=== PATIENT | female | born 1975 | race Caucasian/White ===

== ENCOUNTER 2019-03-04 18:46 | Emergency (ER) | payer BC ==
[~2019-03-04] VITALS: Ht 165.1 cm; Wt 93.0 kg
[2019-03-04 19:06] VITALS: BP 118/67
[2019-03-04] MEDS ORDERED: DIPHTH,PERTUSS(ACELL),TET TOX 0.5 ML DISP.SYRIN. VAX IM ONE (19:30)
[2019-03-04] MEDS ORDERED: MOXI400T PO (19:46)
--- NOTE | 2019-03-04 19:47 | PHYS DOC ---
Past History Past Medical History: Migraines Alcohol Use: None Drug Use: None Adult General Chief Complaint Chief Complaint: ANIMAL BITE HPI HPI 43-year-old female presents with single dog bite to the right lower leg. 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 A dog that she was managing slipped out of its collar and bit her on the leg. It was a single bite. The animal is known and is up-to-date on shots. The patient's tetanus is out of date. She does not have any other bites or injuries. Review of Systems Review of Systems Constitutional: Denies fever or chills [] Eyes: Denies change in visual acuity, redness, or eye pain [] HENT: Denies nasal congestion or sore throat [] Respiratory: Denies cough or shortness of breath [] Cardiovascular: No additional information not addressed in HPI [] GI: Denies abdominal pain, nausea, vomiting, bloody stools or diarrhea [] : Denies dysuria or hematuria [] Musculoskeletal: Denies back pain or joint pain [] Integument: Dog bite on the right lower leg[] Neurologic: Denies headache, focal weakness or sensory changes [] Endocrine: Denies polyuria or polydipsia [] All other systems were reviewed and found to be within normal limits, except as documented in this note. Current Medications Current Medications Current Medications Medications (Trade) Dose Ordered Sig/Stephanie Start Time Stop Time Status Last Admin Dose Admin Diphtheria/ Tetanus/Acell Pertussis (Boostrix) 0.5 ml ONCE ONCE 03/04/19 19:30 03/04/19 19:31 DC 03/04/19 19:31 0.5 ML Allergies Allergies Allergies Coded Allergies Type Severity Reaction Last Updated Verified Penicillins Allergy Severe Hives 03/04/19 Yes Cephalosporins Allergy Unknown 03/04/19 No Physical Exam Physical Exam Constitutional: Well developed, well nourished, no acute distress, non-toxic appearance. [] HENT: Normocephalic, atraumatic, bilateral external ears normal, oropharynx moist, no oral exudates, nose normal. [] Eyes: PERRLA, EOMI, conjunctiva normal, no discharge. [] Neck: Normal range of motion, no tenderness, supple, no stridor. [] Cardiovascular:Heart rate regular rhythm, no murmur [] Lungs & Thorax: Bilateral breath sounds clear to auscultation [] Abdomen: Bowel sounds normal, soft, no tenderness, no masses, no pulsatile masses. [] Skin: Mild swelling of the anterior right lower leg with a single dog bite.[] Back: No tenderness, no CVA tenderness. [] Extremities: No tenderness, no cyanosis, no clubbing, ROM intact, no edema. [] Neurologic: Alert and oriented X 3, normal motor function, normal sensory function, no focal deficits noted. [] Psychologic: Affect normal, judgement normal, mood normal. [] Current Patient Data Vital Signs Vital Signs Date Time Temp Pulse Resp B/P (MAP) Pulse Ox O2 Delivery O2 Flow Rate FiO2 03/04/19 19:06 98.2 72 16 98 Room Air EKG EKG [] Radiology/Procedures Radiology/Procedures [] Course & Med Decision Making Course & Med Decision Making Pertinent Labs and Imaging studies reviewed. (See chart for details) The patient's wound was thoroughly irrigated with saline. Since the patient status out-of-date we gave her a tetanus shot. I will place her on Augmentin for 7 days. The proper authorities were contacted and interviewed the patient. She is stable for discharge at this time. The patient is allergic to cephalosporins and penicillins. I will instead treat her with moxifloxacin 400 mg daily for 7 days. [] Dragon Disclaimer Dragon Disclaimer This electronic medical record was generated, in whole or in part, using a voice recognition dictation system. Departure Departure: Impression: Primary Impression: Dog bite of right lower leg Disposition: 01 HOME, SELF-CARE Condition: STABLE Referrals: LAUREN PALACIOS (PCP) Patient Instructions: Animal Bite, [id number] Scripts Moxifloxacin Hcl (AVELOX) 400 Mg Tablet 1 TAB PO DAILY for dog bite, #7 TAB Prov: CASSANDRA LUND DO 03/04/19 Problem Qualifiers Primary Impression: Dog bite of right lower leg Encounter type: initial encounter Qualified Codes: S81.851A - Open bite, right lower leg, initial encounter; W54.0XXA - Bitten by dog, initial encounter CASSANDRA LUND DO Mar 04, 2019 19:47
== END 2019-03-04 20:03 | disposition home or self-care (01) ==
LOC: ER 18:46
DX: S81.851A Open bite, right lower leg, initial encounter (principal); G43.909 Migraine, unspecified, not intractable, without status migrainosus; Z88.0 Allergy status to penicillin; Z88.1 Allergy status to other antibiotic agents; W54.0XXA Bitten by dog, initial encounter; Y93.89 Activity, other specified; Y92.89 Other specified places as the place of occurrence of the external cause; Y99.8 Other external cause status
CPT/HCPCS: 90471; 90715; 99283

== ENCOUNTER → 2022-01-25 | Outpatient (CLI) | payer BC ==
[~2022-01-25] MED LIST: MOXI400T13 PO
--- NOTE | 2022-01-25 10:20 | RAD ---
EXAMINATION: XR EXAM OF ANKLE_RIGHT 3VIEWS. HISTORY: 46 years Female PT FELL TWISTING RT ANKLE, pain: . COMPARISON: None. FINDINGS: There is a mildly displaced oblique fracture in the distal fibula at the level of the syndesmosis. Th e fracture line has an extension into the ankle joint. The ankle joint however demonstrate normal con figuration. There is a lateral soft tissue swelling. There is no fracture in the distal tibia. Small inferior calcaneus ossify seen. IMPRESSION: Minimally displaced distal fibular fracture. Electronically signed by: Demario Covarrubias MD (01/25/2022 10:18 AM) [id number]
== END ==
LOC: RAD 09:48
PROVIDERS: ATTEND Physician Assistant Medical
DX: S82.431A Displaced oblique fracture of shaft of right fibula, initial encounter for closed fracture (principal); M79.89 Other specified soft tissue disorders; X58.XXXA Exposure to other specified factors, initial encounter; Y93.89 Activity, other specified; Y92.89 Other specified places as the place of occurrence of the external cause; Y99.8 Other external cause status
CPT/HCPCS: 73610